=== PATIENT | female | born 1980 | race African-American/Black ===

== ENCOUNTER → 2016-08-30 | Outpatient (CLI) | payer BC ==
[~2016-08-30] MED LIST: MELA3TAB12 PO; MTR600X PO; MULT-513 PO; PREN1TAB29 PO; TYL325X PO
== END | disposition home or self-care (01) ==
LOC: C.PAPS 08:44
PROVIDERS: ATTEND Physician Assistant
DX: Z01.419 Encounter for gynecological examination (general) (routine) without abnormal findings (principal)

== ENCOUNTER 2016-10-29 16:41 | Emergency (ER) | payer BC ==
[~2016-10-29] VITALS: Ht 162.6 cm; Wt 71.1 kg
[~2016-10-29 16:41] MED LIST changes: -MELA3TAB12 PO; -MULT-513 PO
[2016-10-29 16:46] VITALS: Ht 162.6 cm; Wt 71.1 kg
--- NOTE | 2016-10-29 18:52 | EMERGENCY ROOM VISIT NOTE ---
History First contact with patient: 18:24 Chief Complaint: VAGINAL BLEEDING Stated Complaint: 4-5 WKS PREG,CRAMPING W/BLEEDING & CLOTS History of Present Illness The patient is a 35 year old female who presents to the Emergency Room with complaints of vaginal bleeding that started yesterday. The bleeding started very late yesterday. The patient is 4-5 weeks . She contacted her OB doctor yesterday who ordered blood work this morning. The patient went to get her blood work as directed. This afternoon, she began heavier bleeding with clots. She had to change her pad 3 times today. She also notes lower abdominal cramping that started yesterday with the bleeding. The cramping has now improved. The patient is . She is a healthy son she carried to term. She did have preeclampsia with . The patient is recently getting over a cold. She denies taking any over-the- counter medication. She denies any fever or chills. Review of Systems 10 system review performed and negative unless noted in HPI or below Past Medical/Surgical History Preeclampsia Social History Smoking Status: Never Smoker Alcohol Use: none Drug Use: none Marital Status: Housing Status: lives with family Occupation Status: employed Current/Historical Medications Scheduled Multivitamins/Minerals (Mvi With Minerals), 1 TAB PO DAILY Scheduled PRN Melatonin-Pyridoxine (Melatonin), 1 TAB PO HS PRN for Sleep Allergies Coded Allergies: No Known Allergies (Unverified , 07/02/14) Physical Exam Vital Signs Date Time Temp Pulse Resp B/P (MAP) Pulse Ox O2 Delivery O2 Flow Rate FiO2 10/29/16 16:46 37.5 80 16 121/79 100 Room Air Physical Exam VITALS: Vitals are noted on the nurse's note and reviewed by myself. Vital signs stable. GENERAL: 35-year-old female, in mild distress, SKIN: The skin was without rashes, erythema, edema, or bruising. HEAD: Normocephalic atraumatic. NECK: No JVD. HEART: Regular rate and rhythm without murmurs gallops or rubs. LUNGS: Clear to auscultation bilaterally without wheezes, rales or rhonchi. No accessory muscle use. ABDOMEN: Positive bowel sounds x 4.Soft, nontender, without organomegaly. No guarding or rebound tenderness. MUSCULOSKELETAL: No muscle atrophy, erythema, or edema noted. Strength 5/5 throughout. NEURO: Patient was alert and oriented to person place and time. Normal sensation to touch. No focal neurological deficits. Medical Decision & Procedures ER Provider Diagnostic Interpretation: Patient Name: CHELITA VARGAS Unit Number: [id number] Dictated: 10/29/162024 Transcribed: 10/29/162024 MS Printed Date/Time: [~ rep prt dt]/[~ rep prt tm] [~ rep ct labl] - [~ rep ct ivnm] [facility] Radiology Department [place] [id number] Dictated: 10/29/162024 Transcribed: 10/29/162024 MS Printed Date/Time: [~ rep prt dt]/[~ rep prt tm] [~ rep ct labl] - [~ rep ct ivnm] Patient: CHELITA VARGAS Address1: [address] [place] [address] Rec: [id number] Address2: Acct ID: [id number] [facility] Zip: [place] [address] Date: 1980 Sex: F Room/Bed: Ref Phy: Angela Granado M.D. SC: [facility] Att Phy: Report #: [id number] Lizzie Phy: RV. Batista MD Test: F<14S Admit Phy: Deputy Probation Officer: GRETA Interpreting Phy: Franky Cooley M.D. Diagnosis: 4-5 WKS PREG,CRAMPING W/ BLEEDING & CLOTS Ordering Phy: Beba Dueñas PA-C Service Date: 10/29/16 Admit Date: 10/29/16 MNE: [id number] CONF: DICTATED BY: Franky Cooley M.D.]] CC: RV. Batista MD Chaputa-Cherry, Melanie, M.D. Mishock, Kevin, D.O. Urban, Angela P., PA-C Endcc: [~ rep ct add3]] <14 WKS SINGLE CLINICAL HISTORY: 4-5 weeks bleeding with clots bleeding TECHNIQUE: Ultrasound COMPARISON STUDY: None FINDINGS: An intrauterine gestational sac is identified. A pole cannot be confirmed. This potentially is secondary to the early gestational age. The ovaries show several corpus luteum cyst. On the right this measures 1.9 cm. It is subcentimeter on the left. IMPRESSION: 1. Probable intrauterine gestational sac although a pole cannot be confirmed. 2. This potentially is secondary to the early gestational age, versus the possibility of an empty gestational sac. 3. Follow-up ultrasound is recommended a later date to confirm or exclude viability. The above report was generated using voice recognition software. It may contain grammatical, syntax or spelling errors. Electronically signed by: Franky Cooley M.D. 10/29/2016 8:27 PM Dictated Date/Time: 10/29/2016 8:25 PM The status of this report is Signed. Draft = Not yet reviewed or approved by Radiologist. Signed = Reviewed and approved by Radiologist. <AttendingPhy></AttendingPhy> <FamilyPhy>Angela Granado M.D.</ FamilyPhy> <PrimaryPhy>RV. Batista MD</PrimaryPhy> <UnitNumber> [id number]</UnitNumber> <VisitNumber>[id number]</VisitNumber> <PatientName> CHELITA VARGAS</PatientName> <DateOfBirth>1980</DateOfBirth> <Location> [facility]</Location> <ServiceDate>10/29/16</ServiceDate> <MNE>ESINDI</MNE> < OrderingPhy>Beba Dueñas PA-C</OrderingPhy> <OrderingPhyMNE>f rep ord dr blair< /OrderingPhyMNE> <DictatingPhyMNE>f rep dict dr blair</DictatingPhyMNE> <CCListMNE >f rep ct abye</CCListMNE> <AdmittingPhyMNE>f pt admit dr blair</AdmittingPhyMNE> < AttendingPhyMNE>f pt attend dr blair</AttendingPhyMNE> <ConsultingPhyMNE>f pt consult dr blair</ConsultingPhyMNE> <FamilyPhyMNE>f pt fam dr blair</FamilyPhyMNE> <OtherPhyMNE>f pt other dr mne</OtherPhyMNE> < PrimaryPhyMNE>f pt prim care mne</PrimaryPhyMNE> <ReferringPhyMNE>f pt referring dr mne</ReferringPhyMNE> Laboratory Results 10/29/16 19:28 Red Blood Count 4.30, Mean Corpuscular Volume 87.0, Mean Corpuscular Hemoglobin 27.2, Mean Corpuscular Hemoglobin Concent 31.3, Mean Platelet Volume 9.7, Neutrophils (%) (Auto) 60.2, Lymphocytes (%) (Auto) 31.7, Monocytes (%) (Auto) 6.6, Eosinophils (%) (Auto) 1.0, Basophils (%) (Auto) 0.2, Neutrophils # (Auto) 7.88, Lymphocytes # (Auto) 4.14, Monocytes # (Auto) 0.86, Eosinophils # (Auto) 0.13, Basophils # (Auto) 0.03 10/29/16 19:28 Test 10/29/16 19:28 White Blood Count 13.08 K/uL (4.8-10.8) Red Blood Count 4.30 M/uL (4.2-5.4) Hemoglobin 11.7 g/dL (12.0-16.0) Hematocrit 37.4 % (37-47) Mean Corpuscular Volume 87.0 fL (80-100) Mean Corpuscular Hemoglobin 27.2 pg (25-34) Mean Corpuscular Hemoglobin Concent 31.3 g/dl (32-36) Platelet Count 284 K/uL (130-400) Mean Platelet Volume 9.7 fL (7.4-10.4) Neutrophils (%) (Auto) 60.2 % Lymphocytes (%) (Auto) 31.7 % Monocytes (%) (Auto) 6.6 % Eosinophils (%) (Auto) 1.0 % Basophils (%) (Auto) 0.2 % Neutrophils # (Auto) 7.88 K/uL (1.4-6.5) Lymphocytes # (Auto) 4.14 K/uL (1.2-3.4) Monocytes # (Auto) 0.86 K/uL (0.11-0.59) Eosinophils # (Auto) 0.13 K/uL (0-0.5) Basophils # (Auto) 0.03 K/uL (0-0.2) RDW Standard Deviation 41.6 fL (36.4-46.3) RDW Coefficient of Variation 13.0 % (11.5-14.5) Immature Granulocyte % (Auto) 0.3 % Immature Granulocyte # (Auto) 0.04 K/uL (0.00-0.02) Prothrombin Time 10.0 SECONDS (9.0-12.0) Prothromb Time International Ratio 0.9 (0.9-1.1) Activated Partial Thromboplast Time 28.2 SECONDS (21.0-31.0) Partial Thromboplastin Ratio 1.1 Anion Gap 6.0 mmol/L (3-11) Est Creatinine Clear Calc Drug Dose 83.2 ml/min Estimated GFR () 93.6 Estimated GFR (Non- 80.8 BUN/Creatinine Ratio 12.5 (10-20) Calcium Level 9.0 mg/dl (8.5-10.1) Magnesium Level 2.2 mg/dl (1.8-2.4) Total Bilirubin 0.4 mg/dl (0.2-1) Aspartate Amino Transf (AST/SGOT) 12 U/L (15-37) Alanine Aminotransferase (ALT/SGPT) 18 U/L (12-78) Alkaline Phosphatase 51 U/L (45-117) Total Protein 7.1 gm/dl (6.4-8.2) Albumin 4.1 gm/dl (3.4-5.0) Globulin 3.0 gm/dl (2.5-4.0) Albumin/Globulin Ratio 1.4 (0.9-2) Human Chorionic Gonadotropin, Quant 1820 mIU/mL ED Course Patient was seen and examined Vital signs including blood pressure were reviewed medications list was verified with patient Labs were obtained, and a saline lock was established An ultrasound was performed The patient was reassessed resting comfortably with her at the bedside. We discussed the findings of her workup. She was tearful, but understood I reviewed discharge instructions the patient. They voiced understanding and had no further questions. Medical Decision Differential diagnosis: Threatened , spontaneous , subchorionic hemorrhage, This patient is a 35-year-old female that presented to the emergency department with a main complaint of vaginal bleeding that started yesterday. She has 4-5 weeks . She had blood work done this morning. Her hCG this morning was 2200. I rechecked this this evening and it is decreasing at 1800. On ultrasound, a gestational sac was present, but no pole was confirmed. This likely means an inevitable miscarriage. The patient's H&H is stable. Her blood type is O+. There is no need for RhoGAM. She is not having a large amount of bleeding. I believe she is stable to be discharged home. The patient was instructed to repeat her blood work as scheduled on Tuesday, 2 days from now. She will also abstain from sexual activity. 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 Impression Primary Impression: Miscarriage Departure Information Dispostion Home / Self-Care Condition FAIR Referrals RV. Batista MD (PCP) Uli Tony M.D. Patient Instructions ED Miscarriage Inevitable, [facility] Additional Instructions You were seen in the emergency department for evaluation of vaginal bleeding. An ultrasound saw a gestational sac, however there was not a viable fetus present. Your HCG levels are also decreasing. This likely means that you are experiencing a miscarriage. Please remember that miscarriages are very common and it is nothing that you did to cause this It is important to abstain from sexual activity until you are cleared by your OB /SPECIAL AGENT IN CHARGE Please follow-up with your PAPER MILL SUPERINTENDENT in the next 3-5 days. Please also get your blood drawn as scheduled on Tuesday Return to the emergency department if you have any of the following symptoms: -Saturating more than 1 pad per hour -Severe pain -Fever
[2016-10-29] MEDS ORDERED: MULT-513 PO (19:32)
[2016-10-29] MEDS ORDERED: MELA3TAB12 PO (19:32)
[2016-10-29 19:41] LABS: BASO % 0.2 %; BASO ABS # 0.03 K/uL (0-0.2); COMPLETE YES; HEMATOCRIT 37.4 % (37-47); IG% 0.3 %; LYMPH % 31.7 %; LYMPH ABS # 4.14 K/uL (1.2-3.4); MEAN CORPUSCULAR HEMOGLOBIN 27.2 pg (25-34); MEAN CORPUSCULAR HGB CONC 31.3 g/dl (32-36); MEAN PLATELET VOLUME 9.7 fL (7.4-10.4); MONO % 6.6 %; NEUT % 60.2 %; PLATELET COUNT 284 K/uL (130-400); WHITE BLOOD COUNT 13.08 K/uL (4.8-10.8)
[2016-10-29 19:51] LABS: INR 0.9 (0.9-1.1); PARTIAL THROMBOPLASTIN RATIO 1.1
[2016-10-29 20:08] LABS: BUN/CREATININE RATIO 12.5 (10-20); CREATININE 0.93 mg/dl (0.60-1.20); MAGNESIUM 2.2 mg/dl (1.8-2.4); POTASSIUM 3.5 mmol/L (3.5-5.1)
[2016-10-29 20:11] LABS: ALB/GLOB RATIO 1.4 (0.9-2)
--- NOTE | 2016-10-29 20:29 | DIAGNOSTIC IMAGING REPORT ---
<14 WKS SINGLE CLINICAL HISTORY: 4-5 weeks bleeding with clots bleeding TECHNIQUE: Ultrasound COMPARISON STUDY: None FINDINGS: An intrauterine gestational sac is identified. A pole cannot be confirmed. This potentially is secondary to the early gestational age. The ovaries show several corpus luteum cyst. On the right this measures 1.9 cm. It is subcentimeter on the left. IMPRESSION: 1. Probable intrauterine gestational sac although a pole cannot be confirmed. 2. This potentially is secondary to the early gestational age, versus the possibility of an empty gestational sac. 3. Follow-up ultrasound is recommended a later date to confirm or exclude viability. The above report was generated using voice recognition software. It may contain grammatical, syntax or spelling errors. Electronically signed by: Franky Cooley M.D. 10/29/2016 8:27 PM Dictated Date/Time: 10/29/2016 8:25 PM
[2016-10-29 21:10] VITALS: BP 108/75; PULSE 77; TEMP 37.5; O2SAT 98
== END 2016-10-29 21:11 | disposition home or self-care (01) ==
LOC: C.EDB 16:42 → C.EDC 21:11
DX: O03.9 Complete or unspecified spontaneous abortion without complication (principal); Z3A.01 Less than 8 weeks gestation of pregnancy

== ENCOUNTER → 2016-10-29 | Outpatient (CLI) | payer BC | END | disposition home or self-care (01) | LOC: C.LAB1850 08:30 | PROVIDERS: ATTEND Obstetrics & Gynecology | DX: O20.9 Hemorrhage in early pregnancy, unspecified (principal); Z3A.00 Weeks of gestation of pregnancy not specified ==

== ENCOUNTER → 2016-10-31 | Outpatient (CLI) | payer BC ==
[~2016-10-31] MED LIST changes: +MELA3TAB12 PO; +MULT-513 PO
== END ==
LOC: C.LAB 09:36
PROVIDERS: ATTEND Obstetrics & Gynecology
DX: O20.9 Hemorrhage in early pregnancy, unspecified (principal)

== ENCOUNTER → 2016-11-14 | Outpatient (CLI) | payer BC ==
[~2016-11-14] MED LIST changes: -MTR600X PO; -PREN1TAB29 PO; -TYL325X PO
== END | disposition home or self-care (01) ==
LOC: C.LAB 10:03
PROVIDERS: ATTEND Obstetrics & Gynecology
DX: O03.9 Complete or unspecified spontaneous abortion without complication (principal)

== ENCOUNTER → 2017-06-03 | Outpatient (CLI) | payer OTHER | END | disposition home or self-care (01) | LOC: C.LABSPEC 13:56 | PROVIDERS: ATTEND Obstetrics & Gynecology | DX: O09.521 Supervision of elderly multigravida, first trimester (principal); Z3A.00 Weeks of gestation of pregnancy not specified ==

== ENCOUNTER → 2017-06-09 | Outpatient (CLI) | payer OTHER | END | disposition home or self-care (01) | LOC: C.LABSPEC 13:25 | PROVIDERS: ATTEND Obstetrics & Gynecology | DX: O09.521 Supervision of elderly multigravida, first trimester (principal); Z3A.00 Weeks of gestation of pregnancy not specified ==

== ENCOUNTER → 2017-06-13 | Outpatient (CLI) | payer OTHER ==
[2017-06-13 09:27] LABS: BASO % 0.2 %; BASO ABS # 0.02 K/uL (0-0.2); EOS % 0.4 %; EOS ABS # 0.04 K/uL (0-0.5); HEMATOCRIT 38.4 % (37-47); HEMOGLOBIN 12.8 g/dL (12.0-16.0); IG# 0.02 K/uL (0.00-0.02); LYMPH % 23.7 %; LYMPH ABS # 2.16 K/uL (1.2-3.4); MEAN CELL VOLUME 85.7 fL (80-100); MEAN CORPUSCULAR HEMOGLOBIN 28.6 pg (25-34); MEAN CORPUSCULAR HGB CONC 33.3 g/dl (32-36); MEAN PLATELET VOLUME 10.6 fL (7.4-10.4); MONO % 5.8 %; MONO ABS # 0.53 K/uL (0.11-0.59); NEUT % 69.7 %; NEUT ABS # 6.35 K/uL (1.4-6.5); PLATELET COUNT 286 K/uL (130-400); RED CELL DISTRIBUTION WIDTH CV 13.1 % (11.5-14.5); RED CELL DISTRIBUTION WIDTH SD 41.4 fL (36.4-46.3); WHITE BLOOD COUNT 9.12 K/uL (4.8-10.8)
[2017-06-13 09:43] LABS: ALKALINE PHOSPHATASE 52 U/L (45-117); ALT/SGPT 17 U/L (12-78); AST/SGOT 10 U/L (15-37)
== END | disposition home or self-care (01) ==
LOC: C.LAB1850 07:45
PROVIDERS: ATTEND Obstetrics & Gynecology
DX: O09.521 Supervision of elderly multigravida, first trimester (principal); Z3A.00 Weeks of gestation of pregnancy not specified

== ENCOUNTER → 2017-08-27 | Outpatient (CLI) | payer OTHER | END | disposition home or self-care (01) | LOC: C.LAB1850 08:27 | PROVIDERS: ATTEND Obstetrics & Gynecology | DX: O28.1 Abnormal biochemical finding on antenatal screening of mother (principal); Z3A.00 Weeks of gestation of pregnancy not specified ==

== ENCOUNTER → 2017-12-08 | Outpatient (CLI) | payer OTHER | END | disposition home or self-care (01) | LOC: C.LABSPEC 13:25 | PROVIDERS: ATTEND Obstetrics & Gynecology | DX: O09.523 Supervision of elderly multigravida, third trimester (principal); Z3A.00 Weeks of gestation of pregnancy not specified ==